=== PATIENT | female | born 1970 | race Caucasian/White ===

== ENCOUNTER → 2016-09-07 | Outpatient (CLI) | payer BC ==
[~2016-09-07] MED LIST: ASCO10003 PO; CHOL1000 PO; ERGO500037 PO; GABA1CAP5 PO; GADAVIST IV PRN; NORT25CA PO
--- NOTE | 2016-09-07 07:41 | DIAGNOSTIC IMAGING REPORT ---
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 IV administration of 8.5 mL of Gadavist contrast was uneventful. FINDINGS: Findings of generalized cerebellar atrophy. Several small foci of increased signal within the periventricular deep matter regions. This primarily involves the left optic radiations as well as several small foci adjacent to the anterior horn right lateral ventricle, and right frontal lobe region. These for the most part are stable and only slightly progressive compared to the prior exam. The patient's age this is suggestive of either chronic small vessel change versus demyelinating disorder. No evidence for an acute ischemic process. Diffusion-weighted images are negative. Postcontrast images again negative for an enhancing process. Small tiny renal cyst is stable. IMPRESSION: 1. Generalized cerebellar atrophy. 2. Several small foci of increased signal within the left optic radiations and right frontal lobe. 3. No evidence for abnormal postcontrast enhancement. 4. Chronic small vessel change of aging versus a nonprogressive demyelinating disorder must be considered Electronically signed by: Giorgio Manuel M.D. 09/07/2016 7:39 AM Dictated Date/Time: 09/07/2016 7:36 AM
== END | disposition home or self-care (01) ==
LOC: C.MRI 06:30
PROVIDERS: ATTEND Psychiatry & Neurology Neurology
DX: R27.0 Ataxia, unspecified (principal); G31.9 Degenerative disease of nervous system, unspecified; E34.8 Other specified endocrine disorders; R90.89 Other abnormal findings on diagnostic imaging of central nervous system

== ENCOUNTER → 2016-10-10 | Outpatient (CLI) | payer BC ==
[~2016-10-10] MED LIST changes: -GADAVIST IV PRN
[2016-10-10 13:56] LABS: LYME DISEASE AB IGG POS (NEG); LYME DISEASE AB IGM POS (NEG)
[2016-10-11 00:13] LABS: RAPID PLASMA REAGIN NONREACTIVE (NONREACT)
[2016-10-13 13:18] LABS: 18KDIGG BAND REACTIVE (NONREACTIVE); 23KDIGG BAND REACTIVE (NONREACTIVE); 23KDIGM BAND REACTIVE (NONREACTIVE); 28KDIGG BAND NONREACTIVE (NONREACTIVE); 30KDIGG BAND REACTIVE (NONREACTIVE); 39KDIGG BAND REACTIVE (NONREACTIVE); 39KDIGM BAND REACTIVE (NONREACTIVE); 41KDIGG BAND REACTIVE (NONREACTIVE); 41KDIGM BAND NONREACTIVE (NONREACTIVE); 45KDIGG BAND REACTIVE (NONREACTIVE); 58KDIGG BAND REACTIVE (NONREACTIVE); 66KDIGG BAND NONREACTIVE (NONREACTIVE); 93KDIGG BAND REACTIVE (NONREACTIVE)
[2016-10-14 18:33] LABS: GLIADIN DEAMIDATED IgA AB 3 UNITS (<20); GLIADIN DEAMIDATED IgG AB 2 UNITS (<20); METHYLMALONIC ACID 116 NMOL/L (87-318); RETICULIN IgA AB Negative (Negative); VIT E BETA&GAMMA-TOCOPHEROL 5.5 mg/L (<=4.3)
== END | disposition home or self-care (01) ==
LOC: C.LABMFLN 08:18
PROVIDERS: ATTEND Psychiatry & Neurology Neurology
DX: R27.0 Ataxia, unspecified (principal); G62.9 Polyneuropathy, unspecified; M54.5 Low back pain; E55.9 Vitamin D deficiency, unspecified

== ENCOUNTER 2016-11-06 07:39 | Day surgery (SDC) | payer BC ==
[2016-11-06] VITALS (12 sets, daily range): BP systolic 123–165; BP diastolic 73–90; PULSE 79–94; TEMP 36.6–37; O2SAT 95–99; Ht 154.9 cm; Wt 80.5 kg
[~2016-11-06] VITALS: Ht 154.9 cm; Wt 80.5 kg
[2016-11-06] MEDS ORDERED: ERGO500037 PO (08:24)
[2016-11-06] MEDS ORDERED: CHOL1000 PO (08:24)
[2016-11-06] MEDS ORDERED: ASCO10003 PO (08:24)
[2016-11-06] MEDS ORDERED: GABA1CAP5 PO (08:26)
[2016-11-06] MEDS ORDERED: NORT25CA PO (08:26)
[2016-11-06] MEDS ORDERED: ACETAMINOPHEN 500 MG TAB PO PRN ×2 (10:15→10:45)
--- NOTE | 2016-11-06 10:17 | Discharge Instructions ---
Discharge Instructions Procedure Procedure Date: Nov 06, 2016. Reason for visit: Ataxia; Cerebellar Atrophy; Lymes Disease. Discharge Discharge Date: Nov 06, 2016. Discharge Diagnosis: lyme Disease Instructions Activity Recommendations: 1 Day-May resume regular activity Return to School/Work: no limitations Recommended Home Diet: Resume Previous Diet Allergies Coded Allergies: No Known Allergies (Unverified , 11/06/16) Delvis Mary Recommendations: Call your doctor if: * Temperature above 101 degrees * Pain not relieved by pain medicine ordered * There is increased drainage or redness from any incision * You have any unanswered questions or concerns. Your Doctors Instructions noted above were prepared by provider David Melendrez. Patient Signature Section: Patient Instructions Signature Page Nirali Martin Patient (or Guardian) Signature/Date: I have read and understand the instructions given to me by my caregivers. Caregiver/RN/Doctor Signature/Date: The above-named patient and/or guardian has received patient instructions on this date. + Original Patient Signature Page (only) stays with chart. Please make copy for patient.
--- NOTE | 2016-11-06 10:20 | DIAGNOSTIC IMAGING REPORT ---
LUMBAR PUNCTURE DIAGNOSTIC CLINICAL HISTORY: Ataxia, cerebellar atrophy, Lyme's disease. COMPARISON STUDY: No previous studies for comparison. FINDINGS: A timeout was performed. The risks of the procedure were explained the patient informed consent was obtained. Under fluoroscopic guidance, a lumbar puncture was performed at the L3-4 level. 24 seconds of fluoroscopic time was utilized. 5 cc of clear CSF was withdrawn under gravity drip. The fluid was into 4 tubes and sent for laboratory analysis as specified by the referring clinician. The opening pressure was 17 cm of H2O. There were no immediate complications. The patient was sent to medical treatment unit for postprocedure observation. IMPRESSION: 1. Successful fluoroscopically guided diagnostic lumbar puncture performed at the L3-4 level. There were no immediate complications. Electronically signed by: David Melendrez M.D. 11/06/2016 10:19 AM Dictated Date/Time: 11/06/2016 10:17 AM
[2016-11-06 10:58] LABS: CSF TOTAL PROTEIN 51.2 mg/dl (15.0-45.0)
[2016-11-06 11:07] LABS: CSF APPEARANCE CLEAR; CSF COLOR COLORLESS; CSF XANTHOCHROMIC NO XANTHOCHROMIA
[2016-11-13 10:07] LABS: IGG CSF 3.8 mg/dL (0.8-7.7); IGG SERUM 1240 mg/dL (694-1618); LYME DNA PCR CSF OR SYNOVIAL Not detected (Not Detected); LYME DNA SOURCE CSF; LYME IGM CSF NO BANDS DETECTED; MYELIN BASIC PROTEIN 663 <2.0 mcg/L (0.0-4.0)
== END 2016-11-06 14:22 | disposition home or self-care (01) ==
LOC: C.ACU 07:39
PROVIDERS: ATTEND Psychiatry & Neurology Neurology
DX: A69.20 Lyme disease, unspecified (principal); G11.9 Hereditary ataxia, unspecified; G37.9 Demyelinating disease of central nervous system, unspecified

== ENCOUNTER → 2017-11-01 | Outpatient (CLI) | payer BC ==
[~2017-11-01] MED LIST changes: +GABA-1220 PO; -GABA1CAP5 PO
[2017-11-01 17:56] LABS: HEMATOCRIT 39.9 % (37-47); HEMOGLOBIN 13.2 g/dL (12.0-16.0); MEAN CELL VOLUME 92.1 fL (80-100); MEAN CORPUSCULAR HEMOGLOBIN 30.5 pg (25-34); MEAN CORPUSCULAR HGB CONC 33.1 g/dl (32-36); MEAN PLATELET VOLUME 10.1 fL (7.4-10.4); PLATELET COUNT 352 K/uL (130-400); RED CELL DISTRIBUTION WIDTH CV 13.2 % (11.5-14.5); RED CELL DISTRIBUTION WIDTH SD 44.8 fL (36.4-46.3); WHITE BLOOD COUNT 7.09 K/uL (4.8-10.8)
[2017-11-01 18:09] LABS: ALBUMIN 4.1 gm/dl (3.4-5.0); ALT/SGPT 29 U/L (12-78); BLOOD UREA NITROGEN 12 mg/dl (7-18); CALCIUM 9.5 mg/dl (8.5-10.1); CARBON DIOXIDE 28 mmol/L (21-32); CREATININE 0.79 mg/dl (0.60-1.20); GLUCOSE 94 mg/dl (70-99); POTASSIUM 3.8 mmol/L (3.5-5.1); SODIUM 138 mmol/L (136-145)
[2017-11-01 18:12] LABS: ALKALINE PHOSPHATASE 119 U/L (45-117); AST/SGOT 18 U/L (15-37); TOTAL PROTEIN 7.9 gm/dl (6.4-8.2)
== END | disposition home or self-care (01) ==
LOC: C.LABMFLN 10:47
PROVIDERS: ATTEND Family Medicine
DX: A69.20 Lyme disease, unspecified (principal); R11.2 Nausea with vomiting, unspecified; R19.7 Diarrhea, unspecified